=== PATIENT | male | born 1950 | race Two or more races ===

== ENCOUNTER 2021-11-14 06:07 | Day surgery (SDC) | payer OTHER ==
[~2021-11-14 06:07] MED LIST: ACCUPRIL40 MG PO; CRESTOR5 MG; LEVOTHYROXINE25 MCG PO; TOPROL XL100 M1 PO
[2021-11-14] MEDS ORDERED: PERCOCET 5-3251 EACH PO (08:56)
[2021-11-14] MEDS ORDERED: DERMOPLAST PAIN78 GM TOP (08:56)
[2021-11-14] MEDS ORDERED: KETO10TA2 PO (08:56)
[2021-11-14] MEDS ORDERED: NEURONTIN300 MG PO (08:56)
== END 2021-11-14 15:00 | disposition home or self-care (01) ==
LOC: CIR.AMB 06:07 → EDSTATUS 09:45 → SURG 09:45 → CIR.AMB 09:45
PROVIDERS: ATTEND Surgery
DX: K64.2 Third degree hemorrhoids (principal); I10 Essential (primary) hypertension; E78.5 Hyperlipidemia, unspecified; Z87.891 Personal history of nicotine dependence; K57.30 Diverticulosis of large intestine without perforation or abscess without bleeding

== ENCOUNTER 2022-09-04 06:11 | Day surgery (SDC) | payer OTHER ==
[~2022-09-04 06:11] MED LIST changes: +DERMOPLAST PAIN78 GM TOP; +KETO10TA2 PO; +NEURONTIN300 MG PO; +PERCOCET 5-3251 EACH PO; +TENORMIN100 M1 PO
== END 2022-09-04 14:20 | disposition home or self-care (01) ==
LOC: CIR.AMB 06:11
PROVIDERS: ATTEND Surgery Surgery of the Hand
DX: M65.841 Other synovitis and tenosynovitis, right hand (principal); M67.843 Other specified disorders of tendon, right hand; G56.01 Carpal tunnel syndrome, right upper limb; I10 Essential (primary) hypertension; E78.00 Pure hypercholesterolemia, unspecified; Z86.16 Personal history of COVID-19; R73.03 Prediabetes

== ENCOUNTER 2024-02-25 06:12 | Day surgery (SDC) | payer OTHER ==
[~2024-02-25 06:12] MED LIST changes: +ZESTRIL20 MG PO
[2024-02-25] MEDS ORDERED: CEFAZOLIN SODIUM 1,000 MG VIAL ONE (08:10)
[2024-02-25] MEDS ORDERED: CEFAZOLIN SODIUM 1,000 MG VIAL IV SCH (10:00)
== END 2024-02-25 11:35 | disposition home or self-care (01) ==
LOC: CIR.AMB 06:12
PROVIDERS: ATTEND Surgery Surgery of the Hand
DX: M67.844 Other specified disorders of tendon, left hand (principal); M65.842 Other synovitis and tenosynovitis, left hand; I10 Essential (primary) hypertension; E03.9 Hypothyroidism, unspecified